=== PATIENT | female | born 1970 ===

== ENCOUNTER 2016-08-27 13:58 | Emergency (ER) | payer OTHER ==
[2016-08-27 14:06] VITALS: TEMP 98.4; BMI 33.7
[2016-08-27] MEDS ORDERED: Oxycodone/Acetaminophen 5/325 mg Tab PO STA (14:54)
--- NOTE | 2016-08-27 14:56 | C.PDOC ---
History Of Present Illness 46 year old female presents to the ED with complaints of pain to the bilateral feet. Pt notes she has neuropathy, she always has this pain and there is no chagne in it. she was taking gabapentin and percocet for the pain but ran out with the percocet and is requesting more. notes she has an appt with Dr Granado for the pain on . No new symptoms. No trauma. H/o ankle surgeries b/l one eyar ago. Pt ntoes she checked her sugar prior to arrival - 200. Denies any urinary frequency , thrist, or abdominal pain. Time Seen by Provider: 08/27/16 14:43 Chief Complaint (Nursing): Back Pain History Per: Patient History/Exam Limitations: no limitations Onset/Duration Of Symptoms: Intermittent Episodes Current Symptoms Are (Timing): Still Present Quality Of Discomfort: "Pain" Previous Symptoms: None Associated Symptoms: None Recent travel outside of the [place]: No Past Medical History Reviewed: Historical Data, Nursing Documentation, Vital Signs Vital Signs: Last Vital Signs Temp 98.4 F 08/27/16 14:06 Pulse 91 H 08/27/16 15:11 Resp 20 08/27/16 15:11 BP 134/83 08/27/16 15:11 Pulse Ox 96 08/27/16 16:20 - Medical History PMH: Diabetes, HTN, Hypercholesterolemia Family History: States: Unknown Family Hx - Social History Hx Tobacco Use: No Hx Alcohol Use: Yes (occasion) Hx Substance Use: No - Immunization History Hx Tetanus Toxoid Vaccination: Yes Hx Influenza Vaccination: Yes (2014) Hx Pneumococcal Vaccination: No Review Of Systems Constitutional: Negative for: Fever, Chills Gastrointestinal: Negative for: Nausea, Vomiting Musculoskeletal: Positive for: Other (bilateral ankle pain ). Negative for: Back Pain, Leg Pain Neurological: Negative for: Weakness, Numbness Physical Exam - Physical Exam Appears: Non-toxic, No Acute Distress Skin: Warm, Dry Head: Atraumatic Eye(s): bilateral: Normal Inspection, EOMI Nose: Normal Oral Mucosa: Moist Neck: Supple Chest: Symmetrical, No Deformity Cardiovascular: Rhythm Regular Respiratory: Normal Breath Sounds, No Rales, No Rhonchi, No Wheezing Extremity: Normal ROM, Tenderness (diffuse tenderness to bilateral feet and ankles), No Pedal Edema, No Calf Tenderness, Capillary Refill (good capillary refill, less than two seconds ), No Swelling, Other (bilateral heel scars, no erythema ) Extremity: Bilateral: Atraumatic, Normal Color And Temperature Neurological/Psych: Oriented x3, Normal Speech, Normal Cognition, Normal Motor, Normal Sensation Gait: Steady ED Course And Treatment O2 Sat by Pulse Oximetry: 96 Progress Note: TRAVEL RN OR: Tylenol #3 60 tabs on 08/18/16. Discussed pain policy, glucose managment, and follow up with Dr Granado as scheduled. Disposition - Disposition Referrals: Bereket Granado MD [Medical Doctor] - Ihsan Akbar Jr., MD [Medical Doctor] - Disposition: HOME/ ROUTINE Disposition Time: 14:54 Condition: STABLE Additional Instructions: Follow up with Dr Granado and Dr Akbar in 1-2 days. Return to ER if symptoms persist or worsen. Prescriptions: Etodolac [Lodine] 400 mg PO BID #10 tablet Instructions: Diabetic Neuropathy (ED) Print Language: KYRGYZ - Clinical Impression Clinical Impression: Diabetic neuropathy - Scribe Statement The provider has reviewed the documentation as recorded by the Scribe Luiza Marie All medical record entries made by the Scribe were at my direction and personally dictated by me. I have reviewed the chart and agree that the record accurately reflects my personal performance of the history, physical exam, medical decision making, and the department course for this patient. I have also personally directed, reviewed, and agree with the discharge instructions and disposition.
[2016-08-27] MEDS ORDERED: Oxycodone/Acetaminophen 5/325 mg Tab ONE (14:57)
[2016-08-27 15:11] VITALS: BP 134/83; PULSE 91; RESP 20
[2016-08-27 15:51] VITALS: O2SAT 96
== END 2016-08-27 15:20 | disposition home or self-care (01) ==
LOC: C.ER 13:58
DX: E11.40 Type 2 diabetes mellitus with diabetic neuropathy, unspecified (principal)

== ENCOUNTER 2017-01-29 08:51 | Emergency (ER) | payer MEDICAID, OTHER ==
[2017-01-29 08:51] VITALS: BMI 33.7
[2017-01-29 09:59] LABS: RBC URINE 1 /hpf (0-3); URINE BACTERIA OCC (<OCC); URINE BILIRUBIN NEGATIVE (NEGATIVE); URINE BLOOD NEGATIVE (NEGATIVE); URINE COLOR Yellow (YELLOW); URINE GLUCOSE (UA) NORMAL (Normal); URINE KETONE NEGATIVE (NEGATIVE); URINE LEUKOCYTE ESTERASE TRACE Leu/uL (Negative); URINE PROTEIN NEGATIVE (NEGATIVE); URINE UROBILINOGEN NORMAL mg/dL (0.2-1.0); WBC URINE 1 /hpf (0-5)
--- NOTE | 2017-01-29 10:49 | C.PDOC ---
Time Seen by Provider: 01/29/17 09:11 Chief Complaint (Nursing): Back Pain History Per: Patient Onset/Duration Of Symptoms: Days (3) Current Symptoms Are (Timing): Still Present Severity: Moderate Previous Symptoms: Back Pain Associated Symptoms: None. denies: Incontinence, New Weakness, New Numbness Exacerbating Factor(s): Movement Additional History Per: Prior Records Past Medical History Reviewed: Historical Data, Nursing Documentation, Vital Signs Vital Signs: Last Vital Signs Temp 98 F 01/29/17 09:02 Pulse 74 01/29/17 09:02 Resp 14 01/29/17 09:02 BP 112/73 01/29/17 09:02 Pulse Ox 97 01/29/17 09:02 - Medical History PMH: Back Problems, Diabetes, HTN, Hypercholesterolemia Family History: States: Unknown Family Hx - Social History Hx Tobacco Use: No Hx Alcohol Use: Yes (occasion) Hx Substance Use: No - Immunization History Hx Tetanus Toxoid Vaccination: Yes Hx Influenza Vaccination: Yes Hx Pneumococcal Vaccination: No Review Of Systems Except As Marked, All Systems Reviewed And Found Negative. Constitutional: Negative for: Fever Cardiovascular: Negative for: Chest Pain Respiratory: Negative for: Shortness of Breath Gastrointestinal: Negative for: Vomiting, Abdominal Pain Genitourinary: Negative for: Dysuria, Hematuria Musculoskeletal: Positive for: Back Pain Neurological: Negative for: Weakness, Seizures, Altered Mental Status Physical Exam - Physical Exam Appears: Non-toxic, No Acute Distress Skin: Normal Color, Warm, Dry, No Rash Head: Atraumatic, Normacephalic Eye(s): bilateral: Normal Inspection, PERRL, EOMI Neck: Normal ROM, No Midline Cervical Tenderness, No Step Off Deformity, Supple Cardiovascular: Rhythm Regular Respiratory: Normal Breath Sounds, No Accessory Muscle Use Gastrointestinal/Abdominal: Soft, No Tenderness Back: No Vertebral Tenderness Extremity: Normal ROM, No Calf Tenderness Neurological/Psych: Oriented x3, Normal Motor, Normal Sensation ED Course And Treatment - Laboratory Results Lab Interpretation: No Acute Changes O2 Sat by Pulse Oximetry: 97 Pulse Ox Interpretation: Normal Reassessment Condition: Improved Disposition Counseled Patient/Family Regarding: Studies Performed, Diagnosis, Need For Followup, Rx Given - Disposition Referrals: Ihsan Akbar Jr., MD [Medical Doctor] - Disposition: HOME/ ROUTINE Disposition Time: 10:49 Condition: IMPROVED Additional Instructions: Follow up with your doctor this week for further evaluation and treatment. Return to the ER if you develop worsening of symptoms or if you have any other concerns. Prescriptions: Cyclobenzaprine [Cyclobenzaprine HCl] 10 mg PO TID PRN #15 tab PRN Reason: Muscle Spasm Instructions: Back Pain (ED) Forms: [employer] (Slovak) Print Language: SENEGALESE - Clinical Impression Clinical Impression: Back pain
[2017-01-29 11:05] VITALS: BP 110/75; PULSE 72; RESP 16; TEMP 97.7; O2SAT 99
== END 2017-01-29 11:04 | disposition home or self-care (01) ==
LOC: C.ER 08:51
DX: M54.9 Dorsalgia, unspecified (principal); E78.00 Pure hypercholesterolemia, unspecified; E11.9 Type 2 diabetes mellitus without complications; I10 Essential (primary) hypertension

== ENCOUNTER 2017-07-07 18:19 | Inpatient (IN) | payer MEDICAID, OTHER ==
[2017-07-07 18:20] VITALS: BMI 33.7
[2017-07-07] MEDS ORDERED: Sodium Chloride 0.9% 1,000 ML IV ONE ×2 (19:06→21:03)
[2017-07-07] MEDS ORDERED: (Novolin R) Insulin Human Regular 100 units/ml vial IV ONE (19:15)
[2017-07-07] MEDS ORDERED: (Novolin R) Insulin Human Regular 100 units/ml vial ONE ×2 (19:18→21:14)
--- NOTE | 2017-07-07 19:29 | C.PDOC ---
History Of Present Illness 47 y/o female with PMHx significant for uncontrolled diabetes presents to the ED for hyperglycemia. Patient states her finger stick was > 450 this morning, so she took her Metformin dose and had breakfast. She reports her usual regimen includes Metformin 100mg BID and Lantus 40 units at night. Patient denies any weakness, polydipsia, polyuria, chest pain, SOB, dizziness, headache, or other complaint. Of note, patient has had many prior ED visits for the same. Time Seen by Provider: 07/07/17 18:59 Chief Complaint (Nursing): High Blood Sugar History Per: Patient History/Exam Limitations: no limitations Onset/Duration Of Symptoms: Hrs Current Symptoms Are (Timing): Still Present Current Diabetic Medications: Insulin, Oral Medication Past Medical History Reviewed: Historical Data, Nursing Documentation, Vital Signs Vital Signs: Last Vital Signs Temp 98.4 F 07/07/17 18:24 Pulse 74 07/07/17 18:24 Resp 16 07/07/17 18:24 BP 129/74 07/07/17 18:24 Pulse Ox 100 07/07/17 21:38 - Medical History PMH: Back Problems, Diabetes, HTN, Hypercholesterolemia Denies: Chronic Kidney Disease Other Surgeries: Bilateral ankle surgery Family History: States: Unknown Family Hx - Social History Hx Tobacco Use: No Hx Alcohol Use: Yes (occasion) Hx Substance Use: No - Immunization History Hx Tetanus Toxoid Vaccination: Yes Hx Influenza Vaccination: Yes Hx Pneumococcal Vaccination: No Review Of Systems Except As Marked, All Systems Reviewed And Found Negative. Constitutional: Negative for: Fever, Chills, Other (Polydipsia) Eyes: Negative for: Vision Change Cardiovascular: Negative for: Chest Pain Respiratory: Negative for: Shortness of Breath Genitourinary: Negative for: Other (Polyuria) Neurological: Negative for: Weakness, Numbness, Headache, Dizziness Physical Exam - Physical Exam Appears: Non-toxic, No Acute Distress, Other (Obese female; Older than stated age) Skin: Normal Color, Warm, Dry Head: Atraumatic, Normacephalic Eye(s): bilateral: Normal Inspection, PERRL, EOMI Nose: Normal Oral Mucosa: Dry, Other (No ketone smell) Neck: Normal ROM, Supple Chest: Symmetrical Cardiovascular: Rhythm Regular, No Murmur Respiratory: Normal Breath Sounds, No Rales, No Rhonchi, No Wheezing, No Other ( tachypnea) Gastrointestinal/Abdominal: Soft, No Tenderness, No Guarding Extremity: Bilateral: Atraumatic, Normal Color And Temperature, Normal ROM Pulses: Left Dorsalis Pedis: Normal, Right Dorsalis Pedis: Normal Neurological/Psych: Oriented x3, Normal Speech ED Course And Treatment - Laboratory Results Result Diagrams: 07/07/17 19:27 07/07/17 19:27 Lab Interpretation: Normal (ua neg.) Urine POC: Negative ECG: Interpreted By Me ECG Rhythm: Sinus Rhythm ECG Interpretation: Normal Rate From EC O2 Sat by Pulse Oximetry: 100 (RA) Pulse Ox Interpretation: Normal - Radiology CXR: Interpreted by Me CXR Interpretation: Yes: No Acute Disease Progress Note: insulin 10 U IV, NS --> glu 356. insulin 8 U IV, NS --> glu 164. dinner with insulin 70/30 x 20 units SQ. 2130: d/w Don Escobar- covering pts for Dr. Akbar- PMD ok to admit Medical Decision Making Medical Decision Making: Initial Impression: 47 y/o F with uncontrolled diabetes, hyperglycemia Time: 19:06 Initial Plan: Accucheck CMP CBC Hb A1c Chest x-ray Urinalysis Urine HCG IVF hydration 10 units IV insulin uncontrolled DM, poor insight into dz and tx @ home. Unsafe to d/c without insulin therapy (in addition to glargine @ [facility]) and education. No DKA Disposition Doctor Will See Patient In The: Hospital Counseled Patient/Family Regarding: Studies Performed, Diagnosis - Disposition Disposition: HOSPITALIZED Disposition Time: 21:31 Condition: GOOD - Clinical Impression Clinical Impression: Uncontrolled diabetes mellitus - Scribe Statement The provider has reviewed the documentation as recorded by the Annmarie Rosales Provider Attestation: All medical record entries made by the Annmarie were at my direction and personally dictated by me. I have reviewed the chart and agree that the record accurately reflects my personal performance of the history, physical exam, medical decision making, and the department course for this patient. I have also personally directed, reviewed, and agree with the discharge instructions and disposition.
[2017-07-07 19:32] LABS: BASO % 0.4 % (0.0-2.0); EOS # 0.2 K/uL (0.0-0.7); EOS % 1.9 % (0.0-4.0); HEMOGLOBIN 13.2 g/dL (11.0-16.0); LYMPH # 2.8 K/uL (1.0-4.3); LYMPH % 31.1 % (20.0-40.0); MEAN CELL VOLUME 88.6 fL (81.0-99.0); MEAN CORPUSCULAR HEMOGLOBIN 30.2 pg (27.0-31.0); MEAN CORPUSCULAR HGB CONC 34.1 g/dL (33.0-37.0); MEAN PLATELET VOLUME 9.7 fL (7.2-11.7); MONO # 0.5 K/uL (0.0-0.8); MONO % 5.3 % (0.0-10.0); NEUT # 5.5 K/uL (1.8-7.0); NEUT % 61.3 % (50.0-75.0); RBC 4.36 Mil/uL (3.80-5.20); RED CELL DISTRIBUTION WIDTH 14.3 % (11.5-14.5); WHITE BLOOD COUNT 8.9 K/uL (4.8-10.8)
[2017-07-07 19:40] LABS: HCG,QUALITATIVE URINE NEGATIVE (NEGATIVE); SQUAMOUS EPITHIAL 5 /hpf (0-5); URINE BACTERIA OCC (<OCC); URINE BILIRUBIN NEGATIVE (NEGATIVE); URINE BLOOD NEGATIVE (NEGATIVE); URINE CLARITY Hazy (Clear); URINE COLOR Straw (YELLOW); URINE GLUCOSE (UA) 3+ mg/dL (Normal); URINE LEUKOCYTE ESTERASE NEG Leu/uL (Negative); URINE PROTEIN NEGATIVE (NEGATIVE); URINE UROBILINOGEN NORMAL mg/dL (0.2-1.0)
[2017-07-07 19:54] LABS: ALB/GLOB RATIO 1.2 (1.0-2.1); ALBUMIN 3.7 g/dL (3.5-5.0); ALT/SGPT 40 U/L (9-52); AST/SGOT 26 U/L (14-36); BLOOD UREA NITROGEN 11 mg/dL (7-17); CALCIUM 8.8 mg/dl (8.6-10.4); GFR AFRICAN-AMERICAN > 60; GFR NON-AFRICAN AMERICAN > 60
[2017-07-07] MEDS ORDERED: (Novolin R) Insulin Human Regular 100 units/ml vial IV STA (21:03)
[2017-07-07] MEDS ORDERED: (Novolin 70/30) NPH/Regular 70/30 Units/ml 10 ml vial SC STA (22:27)
[2017-07-07] MEDS ORDERED: (Novolin 70/30) NPH/Regular 70/30 Units/ml 10 ml vial SC ONE (22:34)
--- NOTE | 2017-07-07 23:01 | CP.PCM.HP ---
Past Patient History - Infectious Disease Hx of Infectious Diseases: None - Past Medical History & Family History Past Medical History?: Yes - Past Social History Smoking Status: Never Smoked - CARDIAC Hx Hypercholesterolemia: Yes Hx Hypertension: Yes - PULMONARY Hx Respiratory Disorders: No - NEUROLOGICAL Hx Neurological Disorder: No - HEENT Hx HEENT Problems: No - RENAL Hx Chronic Kidney Disease: No - ENDOCRINE/METABOLIC Hx Endocrine Disorders: Yes Hx Diabetes Mellitus Type 1: Yes Hx Diabetes Mellitus Type 2: Yes - HEMATOLOGICAL/ONCOLOGICAL Hx Blood Disorders: No - INTEGUMENTARY Hx Dermatological Problems: No - MUSCULOSKELETAL/RHEUMATOLOGICAL Hx Musculoskeletal Disorders: No Hx Falls: No Other/Comment: Peripheral neuropathy - GASTROINTESTINAL Hx Gastrointestinal Disorders: No - GENITOURINARY/GYNECOLOGICAL Hx Genitourinary Disorders: No - PSYCHIATRIC Hx Substance Use: No - SURGICAL HISTORY Hx Surgeries: Yes Hx Musculoskeletal Surgery: Yes (Bilateral ankle surgery) Other/Comment: Previous R Elbow FX "10 years ago" - ANESTHESIA Hx Anesthesia: Yes Hx Anesthesia Reactions: No Meds Allergies/Adverse Reactions: Allergies Allergy/AdvReac Type Severity Reaction Status Date / Time No Known Allergies Allergy Verified 07/07/17 18:23 Results - Vital Signs Recent Vital Signs: Last Vital Signs Temp 98.1 F 07/07/17 22:39 Pulse 78 07/07/17 22:39 Resp 17 07/07/17 22:39 BP 129/82 07/07/17 22:39 Pulse Ox 96 07/07/17 22:39 - Labs Result Diagrams: 07/07/17 19:27 07/07/17 19:27 Labs: Laboratory Results - last 24 hr 07/07/17 07/07/17 07/07/17 18:28 18:34 19:27 WBC 8.9 RBC 4.36 Hgb 13.2 Hct 38.6 MCV 88.6 MCH 30.2 MCHC 34.1 RDW 14.3 Plt Count 297 MPV 9.7 Neut % (Auto) 61.3 Lymph % (Auto) 31.1 Boyle % (Auto) 5.3 Eos % (Auto) 1.9 Baso % (Auto) 0.4 Neut # (Auto) 5.5 Lymph # (Auto) 2.8 Boyle # (Auto) 0.5 Eos # (Auto) 0.2 Baso # (Auto) 0.0 Sodium Potassium Chloride Carbon Dioxide Anion Gap BUN Creatinine Est GFR ( Amer) Est GFR (Non-Af Amer) POC Glucose (mg/dL) > 500 H* > 500 H* Random Glucose Calcium Total Bilirubin AST ALT Alkaline Phosphatase Total Protein Albumin Globulin Albumin/Globulin Ratio Urine Color Urine Clarity Urine pH Ur Specific Byers Urine Protein Urine Glucose (UA) Urine Ketones Urine Blood Urine Nitrate Urine Bilirubin Urine Urobilinogen Ur Leukocyte Esterase Urine WBC (Auto) Urine RBC (Auto) Ur Squamous Epith Cells Urine Bacteria Urine HCG, Qual 07/07/17 07/07/17 07/07/17 19:27 19:27 22:06 WBC RBC Hgb Hct MCV MCH MCHC RDW Plt Count MPV Neut % (Auto) Lymph % (Auto) Boyle % (Auto) Eos % (Auto) Baso % (Auto) Neut # (Auto) Lymph # (Auto) Boyle # (Auto) Eos # (Auto) Baso # (Auto) Sodium 136 Potassium 4.2 Chloride 97 L Carbon Dioxide 28 Anion Gap 15 BUN 11 Creatinine 0.6 L Est GFR ( Amer) > 60 Est GFR (Non-Af Amer) > 60 POC Glucose (mg/dL) 164 H Random Glucose 471 H* Calcium 8.8 Total Bilirubin 0.3 AST 26 ALT 40 Alkaline Phosphatase 108 Total Protein 6.8 Albumin 3.7 Globulin 3.0 Albumin/Globulin Ratio 1.2 Urine Color Straw Urine Clarity Hazy Urine pH 5.0 Ur Specific Byers 1.028 Urine Protein Negative Urine Glucose (UA) 3+ H Urine Ketones Negative Urine Blood Negative Urine Nitrate Negative Urine Bilirubin Negative Urine Urobilinogen Normal Ur Leukocyte Esterase Neg Urine WBC (Auto) 1 Urine RBC (Auto) 2 Ur Squamous Epith Cells 5 Urine Bacteria Occ H Urine HCG, Qual Negative
[2017-07-08] MEDS ORDERED: (Novolog) Insulin Aspart, Recombinant 100 u/ml 10 ml vial SC SCH ×2 (08:18→11:30)
[2017-07-08] MEDS: (Novolog) Insulin Aspart, Recombinant 100 u/ml 10 ml vial SC SCH ×4 (08:30→21:38)
[2017-07-08] MEDS: (Lantus) Insulin Glargine, Recombinant SC SCH ×2 (09:59→17:44)
[2017-07-08] MEDS ORDERED: ETODOLAC 400 MG PO SCH (10:00)
--- NOTE | 2017-07-08 11:05 | RAD ---
PROCEDURE: CHEST RADIOGRAPH, 1 VIEW HISTORY: Diabetic COMPARISON: Chest radiograph 03/15/2015. FINDINGS: LUNGS: No acute pulmonary disease appreciated bilaterally. PLEURA: No pneumothorax or pleural fluid seen. CARDIOVASCULAR: Borderline cardiomegaly reiterated. Upper limits normal pulmonary vascular pattern perihilar distribution. OSSEOUS STRUCTURES: No significant abnormalities. VISUALIZED UPPER ABDOMEN: Normal. OTHER FINDINGS: None. IMPRESSION: Stable borderline cardiomegaly however pulmonary pattern troublesome normal. No acute pulmonary disease bilaterally.
[2017-07-08] MEDS: Enoxaparin 40 mg Syringe SC SCH (14:09)
--- NOTE | 2017-07-08 18:10 | CP.PCM.PN ---
Subjective - Date & Time of Evaluation Date of Evaluation: 07/08/17 Time of Evaluation: 10:00 - Subjective Subjective: clinically same Objective - Vital Signs/Intake and Output Vital Signs (last 24 hours): Temp Pulse Resp BP Pulse Ox 98.4 F 88 20 111/70 96 07/08/17 15:36 07/08/17 15:36 07/08/17 15:36 07/08/17 15:36 07/08/17 15:36 - Medications Medications: Current Medications Cyclobenzaprine HCl (Flexeril) 10 mg PO TID PRN PRN Reason: Muscle spasm Last Admin: 07/08/17 01:36 Dose: 10 mg Enoxaparin Sodium (Lovenox) 40 mg SC DAILY [facility] Last Admin: 07/08/17 14:09 Dose: 40 mg Insulin Aspart (Novolog) 0 unit SC ACHS [facility] PRN Reason: Protocol Last Admin: 07/08/17 17:43 Dose: 8 unit Insulin Glargine (Lantus) 25 unit SC BID [facility] Last Admin: 07/08/17 17:44 Dose: 25 units Lisinopril (Zestril) 20 mg PO DAILY [facility] Last Admin: 07/08/17 10:01 Dose: 20 mg Metformin HCl (Glucophage Xr) 1,000 mg PO BID [facility] Last Admin: 07/08/17 17:44 Dose: 1,000 mg Rosuvastatin Calcium (Crestor) 10 mg PO HS [facility] - Labs Labs: 07/07/17 19:27 07/07/17 19:27 - Constitutional Appears: Well - Head Exam Head Exam: ATRAUMATIC, NORMAL INSPECTION, NORMOCEPHALIC - Eye Exam Eye Exam: EOMI, Normal appearance, PERRL Pupil Exam: NORMAL ACCOMODATION, PERRL - ENT Exam ENT Exam: Mucous Membranes Moist, Normal Exam - Neck Exam Neck Exam: Full ROM, Normal Inspection. absent: Lymphadenopathy - Respiratory Exam Respiratory Exam: Decreased Breath Sounds - Cardiovascular Exam Cardiovascular Exam: REGULAR RHYTHM, +S1, +S2 - GI/Abdominal Exam GI & Abdominal Exam: Soft, Diminished Bowel Sounds - Rectal Exam Rectal Exam: Deferred Assessment and Plan - Assessment and Plan (Free Text) Plan: IV fluids Blood test Continue medications Flexeril Continue Lantus Fingerstick Blood sugar is again 418 Increase Lantus to 35 units twice daily
[2017-07-09] MEDS: (Novolog) Insulin Aspart, Recombinant 100 u/ml 10 ml vial SC SCH ×4 (08:42→21:11)
[2017-07-09] MEDS: Enoxaparin 40 mg Syringe SC SCH (09:01)
[2017-07-09] MEDS: (Lantus) Insulin Glargine, Recombinant SC SCH ×2 (09:02→18:55)
--- NOTE | 2017-07-09 18:29 | CP.PCM.PN ---
Subjective - Date & Time of Evaluation Date of Evaluation: 07/09/17 Time of Evaluation: 10:00 - Subjective Subjective: clinically same Objective - Vital Signs/Intake and Output Vital Signs (last 24 hours): Temp Pulse Resp BP Pulse Ox 98.4 F 87 20 120/75 97 07/09/17 15:40 07/09/17 15:40 07/09/17 15:40 07/09/17 15:40 07/09/17 15:40 Intake and Output: 07/09/17 07/09/17 06:59 18:59 Intake Total 720 Balance 720 - Medications Medications: Current Medications Cyclobenzaprine HCl (Flexeril) 10 mg PO TID PRN PRN Reason: Muscle spasm Last Admin: 07/09/17 17:20 Dose: 10 mg Enoxaparin Sodium (Lovenox) 40 mg SC DAILY [facility] Last Admin: 07/09/17 09:01 Dose: 40 mg Insulin Aspart (Novolog) 0 unit SC ACHS [facility] PRN Reason: Protocol Last Admin: 07/09/17 17:21 Dose: 6 unit Insulin Glargine (Lantus) 25 unit SC BID [facility] Last Admin: 07/09/17 09:02 Dose: 25 units Lisinopril (Zestril) 20 mg PO DAILY [facility] Last Admin: 07/09/17 09:02 Dose: 20 mg Metformin HCl (Glucophage Xr) 1,000 mg PO BID [facility] Last Admin: 07/09/17 17:21 Dose: 1,000 mg Rosuvastatin Calcium (Crestor) 10 mg PO [facility] Last Admin: 07/08/17 21:40 Dose: 10 mg - Labs Labs: 07/07/17 19:27 07/07/17 19:27 - Constitutional Appears: Well - Head Exam Head Exam: ATRAUMATIC, NORMAL INSPECTION, NORMOCEPHALIC - Eye Exam Eye Exam: EOMI, Normal appearance, PERRL Pupil Exam: NORMAL ACCOMODATION, PERRL - ENT Exam ENT Exam: Mucous Membranes Moist, Normal Exam - Neck Exam Neck Exam: Full ROM, Normal Inspection. absent: Lymphadenopathy - Respiratory Exam Respiratory Exam: Decreased Breath Sounds - Cardiovascular Exam Cardiovascular Exam: REGULAR RHYTHM, +S1, +S2 - GI/Abdominal Exam GI & Abdominal Exam: Soft, Diminished Bowel Sounds - Rectal Exam Rectal Exam: Deferred
[2017-07-09] MEDS ORDERED: (Lantus) Insulin Glargine, Recombinant SC ONE (21:00)
[2017-07-10 07:57] VITALS: RESP 20
[2017-07-10] MEDS: (Novolog) Insulin Aspart, Recombinant 100 u/ml 10 ml vial SC SCH ×6 (08:30→21:18)
[2017-07-10] MEDS: Enoxaparin 40 mg Syringe SC SCH (09:08)
[2017-07-10] MEDS: (Lantus) Insulin Glargine, Recombinant SC SCH ×2 (11:00→18:27)
--- NOTE | 2017-07-10 15:17 | CP.PCM.PN ---
Subjective - Date & Time of Evaluation Date of Evaluation: 07/10/17 Time of Evaluation: 09:20 - Subjective Subjective: clinically same Objective - Vital Signs/Intake and Output Vital Signs (last 24 hours): Temp Pulse Resp BP Pulse Ox 97.8 F 99 H 20 115/76 98 07/10/17 07:00 07/10/17 09:10 07/10/17 07:00 07/10/17 09:10 07/10/17 07:00 Intake and Output: 07/10/17 07/10/17 06:59 18:59 Intake Total 720 300 Balance 720 300 - Medications Medications: Current Medications Cyclobenzaprine HCl (Flexeril) 10 mg PO TID PRN PRN Reason: Muscle spasm Last Admin: 07/10/17 14:51 Dose: 10 mg Enoxaparin Sodium (Lovenox) 40 mg SC DAILY [facility] Last Admin: 07/10/17 09:08 Dose: 40 mg Insulin Aspart (Novolog) 0 unit SC ACHS [facility] PRN Reason: Protocol Last Admin: 07/10/17 12:22 Dose: 12 unit Insulin Aspart (Novolog) 5 unit SC TID [facility] Last Admin: 07/10/17 13:55 Dose: 5 unit Insulin Glargine (Lantus) 35 unit SC BID [facility] Last Admin: 07/10/17 11:00 Dose: 35 units Lisinopril (Zestril) 20 mg PO DAILY [facility] Last Admin: 07/10/17 09:10 Dose: 20 mg Metformin HCl (Glucophage Xr) 1,000 mg PO BID [facility] Last Admin: 07/10/17 09:08 Dose: 1,000 mg Rosuvastatin Calcium (Crestor) 10 mg PO [facility] Last Admin: 07/09/17 21:12 Dose: 10 mg - Labs Labs: 07/07/17 19:27 07/07/17 19:27 - Constitutional Appears: Well - Head Exam Head Exam: ATRAUMATIC, NORMAL INSPECTION, NORMOCEPHALIC - Eye Exam Eye Exam: EOMI, Normal appearance, PERRL Pupil Exam: NORMAL ACCOMODATION, PERRL - ENT Exam ENT Exam: Mucous Membranes Moist, Normal Exam - Neck Exam Neck Exam: Full ROM, Normal Inspection. absent: Lymphadenopathy - Respiratory Exam Respiratory Exam: Decreased Breath Sounds - Cardiovascular Exam Cardiovascular Exam: REGULAR RHYTHM, +S1, +S2 - GI/Abdominal Exam GI & Abdominal Exam: Soft, Diminished Bowel Sounds - Rectal Exam Rectal Exam: Deferred
[2017-07-11 07:31] LABS: BASO % 0.4 % (0.0-2.0); EOS # 0.1 K/uL (0.0-0.7); EOS % 1.6 % (0.0-4.0); HEMOGLOBIN 13.7 g/dL (11.0-16.0); LYMPH # 2.4 K/uL (1.0-4.3); LYMPH % 30.3 % (20.0-40.0); MEAN CELL VOLUME 87.5 fL (81.0-99.0); MEAN CORPUSCULAR HGB CONC 34.3 g/dL (33.0-37.0); MEAN PLATELET VOLUME 9.4 fL (7.2-11.7); MONO # 0.4 K/uL (0.0-0.8); MONO % 5.2 % (0.0-10.0); NEUT % 62.5 % (50.0-75.0); RBC 4.57 Mil/uL (3.80-5.20)
[2017-07-11 07:48] VITALS: PULSE 88; O2SAT 98
--- NOTE | 2017-07-11 07:51 | CP.PCM.PN ---
Subjective - Date & Time of Evaluation Date of Evaluation: 07/11/17 Time of Evaluation: 07:50 - Subjective Subjective: PGY-[address] Escobar's service Pt seen and examined at bedside. Nursing reports no acute events overnight. Patient reports she feels better since her sugars have been better controlled. Denies chest pain, SOB, abdominal pain, N/V, or palpitations. Objective - Vital Signs/Intake and Output Vital Signs (last 24 hours): Temp Pulse Resp BP Pulse Ox 98.1 F 88 20 108/76 98 07/11/17 07:00 07/11/17 07:00 07/11/17 07:00 07/11/17 07:00 07/11/17 07:00 - Medications Medications: Current Medications Cyclobenzaprine HCl (Flexeril) 10 mg PO TID PRN PRN Reason: Muscle spasm Last Admin: 07/10/17 14:51 Dose: 10 mg Enoxaparin Sodium (Lovenox) 40 mg SC DAILY [facility] Last Admin: 07/10/17 09:08 Dose: 40 mg Insulin Aspart (Novolog) 0 unit SC ACHS [facility] PRN Reason: Protocol Last Admin: 07/10/17 21:18 Dose: Not Given Insulin Aspart (Novolog) 5 unit SC TID [facility] Last Admin: 07/10/17 17:02 Dose: 5 unit Insulin Glargine (Lantus) 35 unit SC BID [facility] Last Admin: 07/10/17 18:27 Dose: 35 units Lisinopril (Zestril) 20 mg PO DAILY [facility] Last Admin: 07/10/17 09:10 Dose: 20 mg Metformin HCl (Glucophage Xr) 1,000 mg PO BID [facility] Last Admin: 07/10/17 18:27 Dose: 1,000 mg Rosuvastatin Calcium (Crestor) 10 mg PO HS [facility] Last Admin: 07/10/17 22:04 Dose: 10 mg - Labs Labs: 07/11/17 07:12 07/07/17 19:27 - Constitutional Appears: Non-toxic, No Acute Distress - Head Exam Head Exam: ATRAUMATIC, NORMAL INSPECTION - Eye Exam Eye Exam: EOMI. absent: Scleral icterus Pupil Exam: PERRL - ENT Exam ENT Exam: Mucous Membranes Moist - Neck Exam Neck Exam: Full ROM - Respiratory Exam Respiratory Exam: Clear to Ausculation Bilateral, NORMAL BREATHING PATTERN. absent: Rales, Rhonchi, Wheezes - Cardiovascular Exam Cardiovascular Exam: REGULAR RHYTHM, +S1, +S2 - GI/Abdominal Exam GI & Abdominal Exam: Soft, Normal Bowel Sounds. absent: Tenderness Additional comments: obese - Extremities Exam Extremities Exam: Normal Inspection. absent: Pedal Edema, Tenderness - Back Exam Back Exam: absent: CVA tenderness (L), CVA tenderness (R) - Neurological Exam Neurological Exam: Alert, Awake, Oriented x3 - Psychiatric Exam Psychiatric exam: Normal Affect, Normal Mood - Skin Skin Exam: Normal Color, Warm Assessment and Plan - Assessment and Plan (Free Text) Plan: T2DM, uncontrolled A1C: 11.8 Lantus 35 units SC BID Aspart 5mg TID Metformin 1000mg PO BID [facility] Lisinopril 20mg PO Daily Crestor 10mg PO HS HTN Well-controlled Lisinopril 20mg PO Daily Prophylaxis Lovenox 40mg SC daily SCDs GI not indicated Consistent Carb Diet Disposition: Pt for discharge today per Dr. Shawn Henriquez PGY-2 All medical management per Shawn
[2017-07-11 08:13] LABS: ALB/GLOB RATIO 1.3 (1.0-2.1); ALBUMIN 4.1 g/dL (3.5-5.0); ALT/SGPT 38 U/L (9-52); AST/SGOT 34 U/L (14-36); BLOOD UREA NITROGEN 14 mg/dL (7-17); CALCIUM 9.2 mg/dl (8.6-10.4); GFR AFRICAN-AMERICAN > 60; GFR NON-AFRICAN AMERICAN > 60
[2017-07-11] MEDS: (Novolog) Insulin Aspart, Recombinant 100 u/ml 10 ml vial SC SCH ×4 (08:30→13:58)
[2017-07-11] MEDS: Enoxaparin 40 mg Syringe SC SCH (09:36)
[2017-07-11] MEDS: (Lantus) Insulin Glargine, Recombinant SC SCH (09:37)
[2017-07-11 15:48] VITALS: BP 113/76; TEMP 97.8
== END 2017-07-11 16:53 | disposition home or self-care (01) | DRG 19 ==
LOC: C.ER 18:19 → C.9E 21:27 → C.3T 07-08 02:06 → C.5S 07-08 03:27 → OBSVTOIN 07-09 18:04
PROVIDERS: ADMIT Internal Medicine Nephrology; ATTEND Internal Medicine Nephrology
DX: E11.65 Type 2 diabetes mellitus with hyperglycemia (principal); E11.40 Type 2 diabetes mellitus with diabetic neuropathy, unspecified; E78.00 Pure hypercholesterolemia, unspecified; I10 Essential (primary) hypertension; Z79.4 Long term (current) use of insulin

== ENCOUNTER 2018-02-15 08:54 | Emergency (ER) | payer OTHER ==
[2018-02-15 09:15] VITALS: O2SAT 99; BMI 34.0
--- NOTE | 2018-02-15 09:45 | C.PDOC ---
Time Seen by Provider: 02/15/18 09:30 Chief Complaint (Nursing): Abdominal Pain Past Medical History Vital Signs: Last Vital Signs Temp 99 F 02/15/18 09:09 Pulse 66 02/15/18 09:09 Resp 20 02/15/18 09:09 BP 126/81 02/15/18 09:09 Pulse Ox 99 02/15/18 09:09 - Medical History PMH: Back Problems, Diabetes, HTN, Hypercholesterolemia Denies: Chronic Kidney Disease Family History: States: Unknown Family Hx - Social History Hx Tobacco Use: No Hx Alcohol Use: No Hx Substance Use: No - Immunization History Hx Tetanus Toxoid Vaccination: Yes Hx Influenza Vaccination: Yes Hx Pneumococcal Vaccination: No ED Course And Treatment O2 Sat by Pulse Oximetry: 99 Disposition - Disposition
--- NOTE | 2018-02-15 09:48 | C.PDOC ---
History Of Present Illness 47yo female with history of hypertension, diabetes, and high cholesterol, comes to ER reporting abdominal pain x 3 days. Patient states the pain is present in her bilateral flank area and radiates to her back. She reports associates nausea, vomiting x 3 with non-bloody and yellow emesis. Patient states she has not taken medications for her symptoms and denies any such episodes prior. She otherwise denies any falls, trauma, vaginal complains, urinary symptoms or rashes. No additional complaints. PMD: Dr. 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 denies: Diarrhea, Chest Pain, Constipation, Urinary Symptoms Last Bowel Movement: Days Ago (2) Additional History Per: Patient Abnormal Vaginal Bleeding: No Past Medical History Reviewed: Historical Data, Nursing Documentation, Vital Signs Vital Signs: Last Vital Signs Temp 99 F 02/15/18 09:09 Pulse 66 02/15/18 09:09 Resp 20 02/15/18 09:09 BP 126/81 02/15/18 09:09 Pulse Ox 99 02/15/18 09:09 - Medical History PMH: Back Problems, Diabetes, HTN, Hypercholesterolemia Denies: Chronic Kidney Disease Surgical History: No Surg Hx Family History: States: No Known Family Hx - Social History Hx Tobacco Use: No Hx Alcohol Use: Yes (social) Hx Substance Use: No - Immunization History Hx Tetanus Toxoid Vaccination: Yes Hx Influenza Vaccination: Yes Hx Pneumococcal Vaccination: No Review Of Systems Except As Marked, All Systems Reviewed And Found Negative. Constitutional: Negative for: Fever, Chills Cardiovascular: Negative for: Chest Pain Respiratory: Negative for: Shortness of Breath Gastrointestinal: Positive for: Nausea, Vomiting, Abdominal Pain (bilateral upper quadrants & flank pain). Negative for: Diarrhea, Hematemesis Genitourinary: Negative for: Dysuria, Frequency, Hematuria, Vaginal Discharge, Vaginal Bleeding, Pelvic Pain Musculoskeletal: Positive for: Back Pain (radiating from abdomen) Skin: Negative for: Rash Physical Exam - Physical Exam Appears: Non-toxic, No Acute Distress Skin: Normal Color Head: Normacephalic Eye(s): bilateral: Normal Inspection, PERRL, EOMI Nose: Normal Oral Mucosa: Moist Tongue: Normal Appearing Lips: Normal Appearing Teeth: Normal Dentition, No Caries Gingiva: Normal Appearing Throat: Normal, No Erythema, No Exudate Neck: Normal ROM, Supple Chest: Symmetrical Cardiovascular: Rhythm Regular Respiratory: Normal Breath Sounds Gastrointestinal/Abdominal: Soft, Tenderness (bilateral upper quadrants and flank tenderness to palpation), No Mass, No Guarding, No Rebound Back: Normal Inspection, No CVA Tenderness, No Vertebral Tenderness Extremity: Normal ROM, No Tenderness, No Deformity Neurological/Psych: Oriented x3, Normal Speech, Normal Cognition Gait: Steady ED Course And Treatment - Laboratory Results Result Diagrams: 02/15/18 09:53 02/15/18 09:53 ECG: Interpreted By Me, Viewed By Me ECG Rhythm: Sinus Rhythm ECG Interpretation: Normal Interpretation Of ECG: NO STEMI Rate From EC O2 Sat by Pulse Oximetry: 99 (RA) Pulse Ox Interpretation: Normal Medical Decision Making Medical Decision Mak[place] female with history of diabetes, HTN and HCH, comes with abdominal pain x 1 week with associated nausea, vomiting. Pain reproducible to palpation to L and R flank along ribs. No pleuritic chest pain. Likely muscular pain. No vertebral tenderness. Plan: -- Labs -- Urinalysis -- CT Abdomen/Pelvis w/ IV Contrast 1057 Labs and urinalysis reviewed, no clinically significant findings. Patient pending CT Abdomen/Pelvis 1116 CT Abdomen/Pelvis FINDINGS: LOWER THORAX: Unremarkable. LIVER: Unremarkable. No gross lesion or ductal dilatation. GALLBLADDER AND BILE DUCTS: Unremarkable. PANCREAS: Unremarkable. No gross lesion or ductal dilatation. SPLEEN: Unremarkable. ADRENALS: Unremarkable. No mass. KIDNEYS AND URETERS: Unremarkable. No hydronephrosis. No solid mass. VASCULATURE: Unremarkable. No aortic aneurysm. There is minimal atherosclerotic calcification of the abdominal aorta. BOWEL: Unremarkable. No obstruction. No gross mural thickening. APPENDIX: Normal appendix. PERITONEUM: Unremarkable. No free fluid. No free air. LYMPH NODES: Unremarkable. No enlarged lymph nodes. BLADDER: Unremarkable. REPRODUCTIVE: Normal uterus BONES: No acute fracture. OTHER FINDINGS: None. IMPRESSION: No acute abnormality. 1235 pain improved, in NAD, labs negative, imaging negative clear for d/c home. given return indications and f/u, pt agreeable to plan. Disposition - Disposition Referrals: [facility] [Outside] [facility] [Outside] [facility] [Outside] George Galvin MD [Staff Provider] - Disposition: HOME/ ROUTINE Disposition Time: 12:26 Condition: GOOD Additional Instructions: THANG DAVID, thank you for letting us take care of you today. Your provider was Jones Feliz and you were treated for SIDE PAIN. The emergency medical care you received today was directed at your acute symptoms. If you were prescribed any medication, please fill it and take as directed. It may take several days for your symptoms to resolve. Return to the Emergency Department if your symptoms worsen, do not improve, or if you have any other problems. Please contact your doctor or call one of the physicians/clinics you have been referred to that are listed on the Patient Visit Information form that is included in your discharge packet. Bring any paperwork you were given at [facility] with you along with any medications you are taking to your follow up visit. Our treatment cannot replace ongoing medical care by a primary care provider outside of the emergency department. Thank you for allowing the [facility] team to be part of your care today. If you had an X-Ray or CT scan: A Radiologist will review the ED reading if any change in treatment is needed we will contact you. If you had a blood, urine, or wound culture: It will take several days for the results, if any change in treatment is needed we will contact you. If you had an STI test: It will take 48 hours for the results. Please call after 1 week if you have not heard back. Instructions: Acute Abdomen (Belly Pain), Adult (DC), Flank Pain (DC) Forms: [employer] [facility] (Azeri) Print Language: LIBYAN - Clinical Impression Clinical Impression: Abdominal pain - Scribe Statement The provider has reviewed the documentation as recorded by the Annmarie Cardenas Provider Attestation: All medical record entries made by the Barryibearnest were at my direction and personally dictated by me. I have reviewed the chart and agree that the record accurately reflects my personal performance of the history, physical exam, medical decision making, and the department course for this patient. I have also personally directed, reviewed, and agree with the discharge instructions and disposition.
[2018-02-15 09:57] LABS: BASO # 0.1 K/uL (0.0-0.2); BASO % 0.7 % (0.0-2.0); EOS # 0.1 K/uL (0.0-0.7); EOS % 1.4 % (0.0-4.0); HEMOGLOBIN 13.7 g/dL (11.0-16.0); LYMPH # 2.2 K/uL (1.0-4.3); LYMPH % 32.4 % (20.0-40.0); MEAN CELL VOLUME 87.8 fL (81.0-99.0); MEAN CORPUSCULAR HGB CONC 34.2 g/dL (33.0-37.0); MONO # 0.3 K/uL (0.0-0.8); MONO % 4.8 % (0.0-10.0); NEUT # 4.2 K/uL (1.8-7.0); NEUT % 60.7 % (50.0-75.0); RBC 4.56 Mil/uL (3.80-5.20); RED CELL DISTRIBUTION WIDTH 13.7 % (11.5-14.5); WHITE BLOOD COUNT 6.9 K/uL (4.8-10.8)
[2018-02-15 10:04] LABS: URINE BILIRUBIN NEGATIVE (NEGATIVE); URINE CLARITY Hazy (Clear); URINE COLOR Yellow (YELLOW); URINE GLUCOSE (UA) 3+ mg/dL (Normal)
[2018-02-15 10:05] LABS: SQUAMOUS EPITHIAL 20 /hpf (0-5); URINE BACTERIA RARE (<OCC); URINE BLOOD NEGATIVE (NEGATIVE); URINE LEUKOCYTE ESTERASE NEG Leu/uL (Negative); URINE PROTEIN NEGATIVE (NEGATIVE); URINE UROBILINOGEN NORMAL mg/dL (0.2-1.0)
[2018-02-15 10:11] LABS: ALB/GLOB RATIO 1.4 (1.0-2.1); ALBUMIN 4.3 g/dL (3.5-5.0); ALT/SGPT 22 U/L (9-52); AST/SGOT 18 U/L (14-36); BLOOD UREA NITROGEN 12 mg/dL (7-17); CALCIUM 9.1 mg/dl (8.6-10.4); GFR NON-AFRICAN AMERICAN > 60; LIPASE 126 U/L (23-300)
[2018-02-15] MEDS ORDERED: Iodixanol 320 MG/ML 100 ML BOTTLE IV ONE (10:34)
--- NOTE | 2018-02-15 11:50 | CT ---
Date of service: 02/15/2018 PROCEDURE: CT Abdomen and Pelvis with contrast HISTORY: abd pain COMPARISON: None. TECHNIQUE: Contrast dose: 100 mL Visipaque 320 Radiation dose: Total exam DLP = 1065.83 mGy-cm. This CT exam was performed using one or more of the following dose reduction techniques: Automated exposure control, adjustment of the mA and/or kV according to patient size, and/or use of iterative reconstruction technique. FINDINGS: LOWER THORAX: Unremarkable. LIVER: Unremarkable. No gross lesion or ductal dilatation. GALLBLADDER AND BILE DUCTS: Unremarkable. PANCREAS: Unremarkable. No gross lesion or ductal dilatation. SPLEEN: Unremarkable. ADRENALS: Unremarkable. No mass. KIDNEYS AND URETERS: Unremarkable. No hydronephrosis. No solid mass. VASCULATURE: Unremarkable. No aortic aneurysm. There is minimal atherosclerotic calcification of the abdominal aorta. BOWEL: Unremarkable. No obstruction. No gross mural thickening. APPENDIX: Normal appendix. PERITONEUM: Unremarkable. No free fluid. No free air. LYMPH NODES: Unremarkable. No enlarged lymph nodes. BLADDER: Unremarkable. REPRODUCTIVE: Normal uterus BONES: No acute fracture. OTHER FINDINGS: None. IMPRESSION: No acute abnormality.
[2018-02-15 12:01] VITALS: BP 133/77; PULSE 70; RESP 16; TEMP 98.2
--- NOTE | 2018-02-18 13:42 | CARD ---
APPROVED REPORT Date of service: 02/15/2018 EKG Measurement Heart [id number] OR [id number] <Conclusion> Normal sinus rhythm Normal ECG
== END 2018-02-15 13:12 | disposition home or self-care (01) ==
LOC: C.ER 08:54
DX: R10.11 Right upper quadrant pain (principal); R10.12 Left upper quadrant pain; E11.9 Type 2 diabetes mellitus without complications; E78.00 Pure hypercholesterolemia, unspecified; I10 Essential (primary) hypertension
CPT/HCPCS: 74177; 80053; 81001; 83690; 83735; 84484; 85025; 93005; 99284; Q9967

== ENCOUNTER 2018-05-06 21:06 | Emergency (ER) | payer OTHER ==
[2018-05-06 21:06] VITALS: BMI 33.7
[2018-05-06 21:33] VITALS: TEMP 98.7
[2018-05-06] MEDS ORDERED: Sodium Chloride 0.9% 1,000 ML IV ONE ×2 (21:41→22:34)
--- NOTE | 2018-05-06 21:44 | C.PDOC ---
History Of Present Illness Patient is a 48 year old female, with a PMHx of diabetes, who presents to the ED for evaluation of high blood sugar of more than 500. Patient states that she ran out of her insulin. She also reports mild headaches. She denies any fever, CP, SOB, nausea, or vomiting. Time Seen by Provider: 05/06/18 21:24 Chief Complaint (Nursing): High Blood Sugar History Per: Patient History/Exam Limitations: no limitations Current Diabetic Medications: Insulin Causative (Exacerbating) Factor(s): Missed Taking Medication Associated Infectious Symptoms: denies: Nausea, Vomiting Recent travel outside of the [place]: No Additional History Per: Patient Past Medical History Reviewed: Historical Data, Nursing Documentation, Vital Signs Vital Signs: Last Vital Signs Temp 98.7 F 05/06/18 21:30 Pulse 95 H 05/06/18 21:30 Resp 18 05/06/18 21:30 BP 119/77 05/06/18 21:30 Pulse Ox 97 05/06/18 21:30 - Medical History PMH: Back Problems, Diabetes, HTN, Hypercholesterolemia Denies: Chronic Kidney Disease Surgical History: No Surg Hx Family History: States: Unknown Family Hx - Social History Hx Tobacco Use: No Hx Alcohol Use: Yes (social) Hx Substance Use: No - Immunization History Hx Tetanus Toxoid Vaccination: Yes Hx Influenza Vaccination: Yes Hx Pneumococcal Vaccination: No Review Of Systems Except As Marked, All Systems Reviewed And Found Negative. Constitutional: Negative for: Fever Cardiovascular: Negative for: Chest Pain Respiratory: Negative for: Shortness of Breath Gastrointestinal: Negative for: Nausea, Vomiting Neurological: Positive for: Headache (mild) Physical Exam - Physical Exam Appears: Non-toxic, No Acute Distress Skin: Normal Color, Warm, Dry Head: Atraumatic, Normacephalic Oral Mucosa: Moist Neck: Normal ROM, Supple Chest: Symmetrical, No Deformity Cardiovascular: Rhythm Regular, No Murmur Respiratory: Normal Breath Sounds, No Rales, No Rhonchi, No Wheezing Gastrointestinal/Abdominal: Soft, No Tenderness Extremity: Normal ROM Neurological/Psych: Oriented x3 ED Course And Treatment - Laboratory Results Result Diagrams: 05/06/18 21:49 05/06/18 21:49 O2 Sat by Pulse Oximetry: 97 (on RA) Pulse Ox Interpretation: Normal Medical Decision Making Medical Decision Making: ro dka - numerous visists for similar. PLan: VBG EKG Labs Urinalysis IV Fluids labs neg for dka. suspect dehydraiton. ivf iniated. insulin given. all symptoms resolved. asking for dc. pt instructed to follow up with pmd in am for further managment of blood sugar. return precautions advised. Disposition - Disposition Referrals: [facility] [Outside] [facility] [Outside] Disposition: HOME/ ROUTINE Disposition Time: 01:00 Condition: STABLE Additional Instructions: please follow up with your doctor/clinic. return to er with worsening symptoms or concerns. please discuss you medications with your doctor. Instructions: Hyperglycemia, Adult Forms: [employer] (Romanian) - Clinical Impression Clinical Impression: Hyperglycemia - Scribe Statement The provider has reviewed the documentation as recorded by the Scribearnest [place] All medical record entries made by the Scribe were at my direction and personally dictated by me. I have reviewed the chart and agree that the record accurately reflects my personal performance of the history, physical exam, medic al decision making, and the department course for this patient. I have also personally directed, reviewed, and agree with the discharge instructions and disposition.
[2018-05-06 21:57] LABS: BASO % 0.7 % (0.0-2.0); EOS # 0.1 K/uL (0.0-0.7); EOS % 1.3 % (0.0-4.0); HEMOGLOBIN 14.1 g/dL (11.0-16.0); LYMPH # 2.6 K/uL (1.0-4.3); LYMPH % 41.4 % (20.0-40.0); MEAN CELL VOLUME 89.9 fL (81.0-99.0); MEAN CORPUSCULAR HEMOGLOBIN 29.3 pg (27.0-31.0); MEAN CORPUSCULAR HGB CONC 32.6 g/dL (33.0-37.0); MEAN PLATELET VOLUME 9.4 fL (7.2-11.7); MONO # 0.4 K/uL (0.0-0.8); MONO % 6.5 % (0.0-10.0); NEUT # 3.1 K/uL (1.8-7.0); NEUT % 50.1 % (50.0-75.0); RBC 4.8 Mil/uL (3.80-5.20); RED CELL DISTRIBUTION WIDTH 13.7 % (11.5-14.5); WHITE BLOOD COUNT 6.2 K/uL (4.8-10.8)
[2018-05-06 22:15] LABS: VENOUS BLOOD GAS BASE EXCESS -0.8 mmol/L (0.0-2.0); VENOUS BLOOD GAS PCO2 52 mmHg (40-60); VENOUS BLOOD GAS PO2 31 mm/Hg (30-55); VENOUS BLOOD PH 7.31 (7.32-7.43)
[2018-05-06 22:38] LABS: SQUAMOUS EPITHIAL 1 /hpf (0-5); URINE BACTERIA RARE (<OCC); URINE BILIRUBIN NEGATIVE (NEGATIVE); URINE BLOOD NEGATIVE (NEGATIVE); URINE CLARITY Clear (Clear); URINE COLOR Straw (YELLOW); URINE GLUCOSE (UA) 3+ mg/dL (Normal); URINE LEUKOCYTE ESTERASE NEG Leu/uL (Negative); URINE PROTEIN NEGATIVE (NEGATIVE); URINE UROBILINOGEN NORMAL mg/dL (0.2-1.0)
[2018-05-06] MEDS ORDERED: Sodium Chloride 0.9% 1,000 ML ONE (22:42)
[2018-05-06 22:51] LABS: ALB/GLOB RATIO 1.5 (1.0-2.1); ALBUMIN 4.2 g/dL (3.5-5.0); ALT/SGPT 17 U/L (9-52); AST/SGOT 19 U/L (14-36); BLOOD UREA NITROGEN 14 mg/dL (7-17); CALCIUM 9.3 mg/dl (8.6-10.4); GFR NON-AFRICAN AMERICAN > 60
[2018-05-06] MEDS ORDERED: (Novolin R) Insulin Human Regular 100 units/ml vial IVP STA (22:53)
[2018-05-06] MEDS ORDERED: (Novolin R) Insulin Human Regular 100 units/ml vial ONE (23:03)
[2018-05-06 23:11] LABS: INR 0.9
[2018-05-06 23:17] LABS: PROTHROMBIN TIME 9.8 SECONDS (9.7-12.2)
[2018-05-07] MEDS ORDERED: (Novolin R) Insulin Human Regular 100 units/ml vial IVP STA (00:17)
[2018-05-07] MEDS ORDERED: (Novolin R) Insulin Human Regular 100 units/ml vial ONE (00:22)
[2018-05-07 01:10] VITALS: BP 110/70; PULSE 80; RESP 14
[2018-05-07 01:13] VITALS: O2SAT 97
--- NOTE | 2018-05-07 09:15 | RAD ---
Date of service: 05/06/2018 HISTORY: Weakness COMPARISON: Comparison chest 07/07/2017. TECHNIQUE: Chest PA and lateral views FINDINGS: LUNGS: No active pulmonary disease. PLEURA: No significant pleural effusion identified. No pneumothorax apparent. CARDIOVASCULAR: No aortic atherosclerotic calcification present. Normal cardiac size. No pulmonary vascular congestion. OSSEOUS STRUCTURES: Minor multilevel degenerative spondylosis of the thoracic VISUALIZED UPPER ABDOMEN: Normal. OTHER FINDINGS: None. IMPRESSION: No active disease.
== END 2018-05-07 01:10 | disposition home or self-care (01) ==
LOC: C.ER 21:06
DX: E11.65 Type 2 diabetes mellitus with hyperglycemia (principal); Z79.4 Long term (current) use of insulin
CPT/HCPCS: 71046; 80053; 81001; 82009; 82803; 82948; 83930; 84484; 85025; 85610; 85730; 96361; 96374; 96376; 99284; J7030